=== PATIENT | male | born 1960 | race Caucasian/White ===

== ENCOUNTER 2025-04-02 12:04 | Emergency (ER) | payer OTHER ==
[~2025-04-02] VITALS: Ht 165.1 cm; Wt 76.0 kg
[2025-04-02 12:10] VITALS: BP 156/79; PULSE 77; RESP 18; TEMP 36.9; O2SAT 100; O2SAT 99
[2025-04-02] MEDS ORDERED: OLME-23 MT (13:06)
== END 2025-04-02 13:35 | disposition home or self-care (01) ==
LOC: ER 12:04
DX: I10 Essential (primary) hypertension (principal); Z76.0 Encounter for issue of repeat prescription; Z79.899 Other long term (current) drug therapy
CPT/HCPCS: 99281